=== PATIENT | female | born 1990 | race Caucasian/White ===

== ENCOUNTER 2016-08-26 22:34 | Emergency (ER) | payer OTHER ==
[2016-08-26 23:25] LABS: HEMOGLOBIN 14.4 gm/dl (12.3-15.3); RED BLOOD COUNT 4.67 M/UL (4.00-5.10); WHITE BLOOD COUNT 8.7 K/UL (4.5-11.0)
[2016-08-26 23:47] LABS: BUN/CREATININE RATIO 12 (0-10)
== END 2016-08-27 03:00 | disposition home or self-care (01) ==
LOC: ER1 22:34
PROVIDERS: Family Medicine
DX: R07.9 Chest pain, unspecified (principal); R00.0 Tachycardia, unspecified; R06.02 Shortness of breath; Z88.1 Allergy status to other antibiotic agents
CPT/HCPCS: 71010; 80053; 82150; 82550; 82553; 83690; 83874; 84443; 84484; 85025; 85379; 93005; 96360; 96361; 96372; 99285; J2060